=== PATIENT | female | born 1960 | race Two or more races ===

== ENCOUNTER → 2016-08-13 | Outpatient (CLI) | payer BC ==
--- NOTE | ~2016-08-13 | CT15 ---
[facility] A Service of [facility] [place] RADIOLOGY TEXT RESULTS PATIENT: BARBY BETH [facility] 58 UNIT #: [id number] AGE: [address]: Coty Clifford MD SEX: F ORDER DR: [id number] [address] [address] [id number] O MR#: [id number] Acc #: [id number] NAME: BARBY BETH : 1960 SEX: F STUDY DATE/TIME: 08/13/2016 9:52 UNIT: [facility] ROOM: STUDY DESCRIPTION: CT Angio Chest Attending Physician: Coty Clifford M.D. Referring Physician: Coty Clifford M.D. Ordering Physician: Coty Clifford M.D. Primary Care Physician: Coty Clifford M.D. MEDICAL IMAGING REPORT This report is preliminary unless electronic signature is present EXAM CT angiogram of the chest. INDICATIONS Aortic root aneurysm. This was identified on an angioplasty which was performed 4 weeks ago. TECHNIQUE Axial CT images were obtained from the thoracic inlet through the abdomen following administration of intravenous contrast material. Following this, 3-D reformatted images were obtained. This CT exam was performed with one or more of the following radiation dose reduction techniques: automatic exposure control, adjustment of mA and/or kV according to patient size, and iterative reconstruction. FINDINGS Please see CTA chest/abdomen performed 08/13/2016, for results. Dictated by... Kim Vidales M.D. THIS IS AN ELECTRONICALLY VERIFIED REPORT Kim Vidales M.D. at 08/16/2016 8:06 AM AFF/natividad TD: 08/14/2016 23:45 JOB #: [id number] MEDICAL IMAGING REPORT [facility] A Service [facility] RADIOLOGY TEXT RESULTS PATIENT: BARBY BETH [facility] 58 UNIT #: [id number] AGE: [address]: Coty Clifford MD SEX: F ORDER DR: Page 1 of 1 COPY
--- NOTE | ~2016-08-13 | CT13 ---
[facility] A Service of [facility] RADIOLOGY TEXT RESULTS PATIENT: BARBY BETH [facility] 58 UNIT #: [id number] AGE: [address]: Coty Clifford MD SEX: F ORDER DR: [id number] [facility] [address] [place], [place] [address] [id number] O MR#: [id number] [facility] #: [id number] NAME: BARBY BETH : 1960 SEX: F STUDY DATE/TIME: 08/13/2016 9:52 UNIT: [facility] ROOM: STUDY DESCRIPTION: CT Angio Abdomen Attending Physician: Coty Clifford M.D. Referring Physician: Coty Clifford M.D. Ordering Physician: Coty Clifford M.D. Primary Care Physician: Coty Clifford M.D. MEDICAL IMAGING REPORT This report is preliminary unless electronic signature is present EXAM CT angiogram of the chest and abdomen. INDICATIONS Aortic root aneurysm. This was identified on an angioplasty which was performed 4 weeks ago. TECHNIQUE Axial CT images were obtained from the thoracic inlet through the abdomen following administration of intravenous contrast material. Following this, 3-D reformatted images were obtained. This CT exam was performed with one or more of the following radiation dose reduction techniques: automatic exposure control, adjustment of mA and/or kV according to patient size, and iterative reconstruction. FINDINGS Aortic root is ectatic at 3.9 cm, however, the ascending thoracic aorta and descending thoracic aorta measure within normal size limits. There is no evidence of dissection. There is really no significant atherosclerotic plaque. The patient has a separate origin of the left gastric artery from the abdominal aorta which is normal in anatomic variant. The superior mesenteric artery and celiac axis arise from a common origin and are widely patent. There are 3 right renal arteries. A single left renal artery, inferior mesenteric artery is widely patent. Abdominal aorta measures within normal size limits. Thyroid gland is heterogeneous. Trachea and esophagus appear unremarkable. There is no pleural or pericardial effusion. The mediastinal lymph nodes do not appear pathologically enlarged. Some mild tree-in-bud change is seen within the left lower lobe which may reflect an infectious or inflammatory process. Certainly no suspicious noncalcified pulmonary nodules or masses are seen. Patient is suspected to have diffuse hepatic steatosis incompletely evaluated on this angiographic STS. [facility] A Service of [facility] RADIOLOGY TEXT RESULTS PATIENT: BARBY BETH LOCATION: [facility] : 58 UNIT #: [id number] AGE: [address]: Coty Clifford MD SEX: F ORDER DR: protocol CT. Adrenal glands, spleen, pancreas, stomach and proximal small bowel all appear normal. The gallbladder appears unremarkable. Kidneys also appear normal. There is tiny fat-containing umbilical hernia. Visualized portions of the GI tract appear normal. Review of bony windows does not demonstrate any aggressive osseous abnormalities. IMPRESSION 1. The patient does have some ectasia of the aortic root measuring up to 3.9 cm. Remainder of the thoracic aorta as well as the abdominal aorta measures within normal size limits. There is no evidence of dissection, and really there is no significant atherosclerotic plaque. 2. The patient has 3 right renal arteries and a single left renal artery. 3. Separate origin of the left gastric artery from the abdominal aorta. 4. Patient does appear to have a common trunk for the celiac axis and superior mesenteric artery. Please see the body of the report for any other additional incidental findings. Dictated by... Kim Vidales M.D. THIS IS AN ELECTRONICALLY VERIFIED REPORT Kim Vidales M.D. at 08/16/2016 7:28 AM BURKE/natividad TD: 08/14/2016 23:38 JOB #: [id number] MEDICAL IMAGING REPORT Page 1 of 1 COPY
[2016-08-13 11:41] LABS: POC - CREATININE 0.83 mg/dL (0.44-1.03); POC - GFR >60.0 mL/min (>60)
== END | disposition home or self-care (01) ==
LOC: CCAT 08:37
PROVIDERS: Internal Medicine Cardiovascular Disease
DX: I77.819 Aortic ectasia, unspecified site (principal)
CPT/HCPCS: 71275; 74175; 82565; Q9967